=== PATIENT | male | born 1980 | race Caucasian/White ===

== ENCOUNTER 2020-06-10 09:18 | Inpatient (IN) | payer OTHER ==
[2020-06-10] MEDS ORDERED: IBUPROFEN 600 MG TABLET (FP) PO ONE (09:50)
[2020-06-10] MEDS ORDERED: DIPHTH,PERTUSS(ACELL),TET 0.5 ML DISP.SYRIN IM ONE (09:50)
[2020-06-10] MEDS ORDERED: VANCOMYCIN 1 GM in D5W (PRE-DOCKED) 1,000 MG/250 ML IVPB ONE (11:30)
[2020-06-10] MEDS ORDERED: CEFTRIAXONE 1,000 MG in DEXTROSE 5%-WATER - 50 ML IVPB ONE (11:31)
[2020-06-10] MEDS ORDERED: VANCOMYCIN 1 GRAM (PRE-DOCKED) 1,000 MG/250 ML BAG IVPB ONE (11:38)
[2020-06-10] MEDS ORDERED: CEFTRIAXONE 1 GM/50 ML BAG ONE (11:38)
[2020-06-10 11:51] LABS: BASO % 0.5 % (0-2.0); HEMATOCRIT 43.6 % (35.4-49); HEMOGLOBIN 15.1 GM/dL (11.7-16.9); LYMPH % 25.4 % (8-40); MCH 29.4 pg (25.7-33.7); MCHC 34.7 g/dl (32.0-35.9); MEAN CELL VOLUME 84.7 fl (80-96); MEAN PLT VOLUME 7.7 fl (7.5-11.1); MONO % 8.4 % (3.8-10.2); NEUT % 64.7 % (42.8-82.8); PLATELET COUNT 275 K/MM3 (134-434); RBC 5.15 M/mm3 (4.00-5.60); RDW 13.6 % (11.9-15.9); WHITE BLOOD COUNT 5.4 K/mm3 (4.0-10.0)
[2020-06-10 12:03] LABS: INR 1.05 (0.83-1.09); PROTHROMBIN TIME (PATIENT) 12.7 SEC (9.7-13.0)
[2020-06-10 12:14] LABS: POTASSIUM 4.5 mmol/L (3.5-5.1)
[2020-06-10 12:16] LABS: ALBUMIN 4.1 g/dl (3.4-5.0); BLOOD UREA NITROGEN 14.5 mg/dL (7-18); CALCIUM 9.3 mg/dL (8.5-10.1)
[2020-06-10 12:19] LABS: CREATININE 0.9 mg/dL (0.55-1.3)
[2020-06-10 12:21] LABS: BILIRUBIN,TOTAL 0.7 mg/dL (0.2-1)
[2020-06-10 12:22] LABS: TOT PROT 7.9 g/dl (6.4-8.2)
[2020-06-10 12:43] LABS: ERYTHROCYTE SEDIMENTATION RATE 44 mm/hr (0-10)
[2020-06-10] MEDS ORDERED: ACETAMINOPHEN 325 MG TABLET (FP) PO PRN (16:44)
[2020-06-10] MEDS ORDERED: ACETAMINOPHEN 325 MG TABLET (FP) ONE (20:06)
[2020-06-10] MEDS ORDERED: HEPARIN NA (PORCINE) 5,000 UNITS/ML 1ML VIAL ONE (22:09)
[2020-06-10] MEDS: HEPARIN NA (PORCINE) 5,000 UNITS/ML 1ML VIAL SQ SCH (22:20)
[2020-06-11] MEDS ORDERED: ACETAMINOPHEN 325 MG TABLET (FP) ONE (06:44)
[2020-06-11] MEDS: HEPARIN NA (PORCINE) 5,000 UNITS/ML 1ML VIAL SQ SCH ×3 (07:02→22:56)
[2020-06-11 07:58] LABS: HEMATOCRIT 40.4 % (35.4-49); HEMOGLOBIN 13.8 GM/dL (11.7-16.9); MCH 29.4 pg (25.7-33.7); MCHC 34.2 g/dl (32.0-35.9); MEAN CELL VOLUME 85.9 fl (80-96); MEAN PLT VOLUME 7.8 fl (7.5-11.1); PLATELET COUNT 285 K/MM3 (134-434); RDW 13.7 % (11.9-15.9); WHITE BLOOD COUNT 6.5 K/mm3 (4.0-10.0)
[2020-06-11 08:16] LABS: POTASSIUM 4.3 mmol/L (3.5-5.1)
[2020-06-11 08:19] LABS: CALCIUM 8.7 mg/dL (8.5-10.1)
[2020-06-11 08:20] LABS: BLOOD UREA NITROGEN 18.4 mg/dL (7-18)
[2020-06-11 08:23] LABS: CREATININE 0.9 mg/dL (0.55-1.3)
[2020-06-11] MEDS ORDERED: CEFTRIAXONE 1 GM in CEFTRIAXONE 1 G/50 ML PREMIX 50 ML IVPB SCH (10:00)
[2020-06-11] MEDS ORDERED: CEFTRIAXONE 1 GM/50 ML BAG ONE (10:01)
[2020-06-11] MEDS ORDERED: oxyCODONE HCL 5 MG TABLET PO PRN (12:20)
[2020-06-11] MEDS ORDERED: HEPARIN NA (PORCINE) 5,000 UNITS/ML 1ML VIAL ONE (14:14)
[2020-06-12 00:53] VITALS: BMI 25.9
[2020-06-12] MEDS: HEPARIN NA (PORCINE) 5,000 UNITS/ML 1ML VIAL SQ SCH ×3 (07:01→22:29)
[2020-06-12] MEDS ORDERED: PT OWN MED DRAWER 7, Y5N ONE (09:37)
[2020-06-12] MEDS ORDERED: DEXTROSE 5%-WATER - 50 ML IVPB ONE (09:52)
[2020-06-12] MEDS ORDERED: cefTRIAXone SODIUM 1 GM VIAL ONE (09:52)
[2020-06-12] MEDS: CEFTRIAXONE 1 GM in DEXTROSE 5%-WATER - 50 ML IVPB SCH (10:07)
[2020-06-13] MEDS: HEPARIN NA (PORCINE) 5,000 UNITS/ML 1ML VIAL SQ SCH ×2 (05:35→15:04)
[2020-06-13 08:43] LABS: HEMATOCRIT 41.5 % (35.4-49); HEMOGLOBIN 14.2 GM/dL (11.7-16.9); MCH 28.9 pg (25.7-33.7); MCHC 34.3 g/dl (32.0-35.9); MEAN CELL VOLUME 84.5 fl (80-96); MEAN PLT VOLUME 8.3 fl (7.5-11.1); PLATELET COUNT 275 K/MM3 (134-434); RBC 4.91 M/mm3 (4.00-5.60); RDW 13.4 % (11.9-15.9); WHITE BLOOD COUNT 5.5 K/mm3 (4.0-10.0)
[2020-06-13] MEDS ORDERED: cefTRIAXone SODIUM 1 GM VIAL ONE (09:04)
[2020-06-13] MEDS ORDERED: DEXTROSE 5%-WATER - 50 ML IVPB ONE (09:04)
[2020-06-13] MEDS: CEFTRIAXONE 1 GM in DEXTROSE 5%-WATER - 50 ML IVPB SCH (09:10)
[2020-06-13 09:23] LABS: BLOOD UREA NITROGEN 14.4 mg/dL (7-18)
[2020-06-13 09:26] LABS: CREATININE 0.8 mg/dL (0.55-1.3)
[2020-06-13 15:25] VITALS: BP 112/66; PULSE 56; TEMP 97.8
== END 2020-06-13 15:57 | disposition home or self-care (01) | DRG 313 ==
LOC: JER 09:18 → JERBED 12:29 → J6S 06-11 21:02
PROVIDERS: ADMIT Internal Medicine; ATTEND Student in an Organized Health Care Education/Training Program
PROC: 0Y9F0ZX Drainage of Right Knee Region, Open Approach, Diagnostic (ICD-10-PCS; principal; 2020-06-10)
PROC: 2W4 Placement, Anatomical Regions, Packing (ICD-10-PCS; 2020-06-10)
PROC: 0S9C3ZX Drainage of Right Knee Joint, Percutaneous Approach, Diagnostic (ICD-10-PCS; 2020-06-10)
PROC: 0SJC0ZZ Inspection of Right Knee Joint, Open Approach (ICD-10-PCS; 2020-06-10)
PROC: 2W1LX6Z Compression of Right Lower Extremity using Pressure Dressing (ICD-10-PCS; 2020-06-10)
DX: M71.161 Other infective bursitis, right knee (principal); M00.9 Pyogenic arthritis, unspecified; M71.561 Other bursitis, not elsewhere classified, right knee; S80.01XA Contusion of right knee, initial encounter; W18.02XA Striking against glass with subsequent fall, initial encounter; Y92.89 Other specified places as the place of occurrence of the external cause; L03.115 Cellulitis of right lower limb
CPT/HCPCS: 36415; 73562-TC-RT-FY; 80048; 80053; 85025; 85027; 85610; 85651; 86140; 86850; 86900; 86901; 87070; 87075; 87205; 90715; 93005; 93010; 97116-GP; 97161-GP; 99285-25; C9803; J1644; U0003